=== PATIENT | female | born 1955 | race Caucasian/White ===

== ENCOUNTER → 2023-04-13 | Outpatient (CLI) | payer MEDICARE, OTHER ==
[~2023-04-13] MED LIST: ACIDOPHILUS1 EAC3; ASPI81CH; CONEST.9; Cranberry400 MG; DEBROX; DESV50; FLAX; HYDHCL25 MT; HYDROCORTISONE30 GM; IBUP200; Milk Thistle175 M1; PSYSENPA; TRAZ50; URITRAX47 GM; ZINC15; Zovirax Cream 5%2 GM
[2023-04-16 15:08] LABS: CHLAMYDIA TRACHOMATIS, NAA Negative (Negative); HPV 16 Negative (Negative); HPV 18 Negative (Negative); HPV OTHER HR TYPES Negative (Negative)
== END | disposition home or self-care (01) ==
LOC: LAB SHORT 16:51 → LAB 16:51
PROVIDERS: Nurse Practitioner Family
DX: Z01.419 Encounter for gynecological examination (general) (routine) without abnormal findings (principal)
CPT/HCPCS: 87491; 87591; 87624; G0145

== ENCOUNTER 2023-04-24 07:14 | Day surgery (SDC) | payer MEDICARE, OTHER ==
[~2023-04-24] VITALS: Ht 157.5 cm; Wt 79.2 kg
[2023-04-24] MEDS ORDERED: Zovirax Cream 5%2 GM (08:15)
[2023-04-24] MEDS ORDERED: DESV50 (08:15)
[2023-04-24] MEDS ORDERED: CONEST.9 (08:16)
[2023-04-24] MEDS ORDERED: HYDHCL25 MT (08:16)
[2023-04-24] MEDS ORDERED: TRAZ50 (08:17)
[2023-04-24] MEDS ORDERED: HYDROCORTISONE30 GM (08:18)
[2023-04-24] MEDS ORDERED: PSYSENPA (08:19)
[2023-04-24] MEDS ORDERED: DEBROX (08:19)
[2023-04-24] MEDS ORDERED: Cranberry400 MG (08:20)
[2023-04-24] MEDS ORDERED: ASPI81CH (08:20)
[2023-04-24] MEDS ORDERED: ACIDOPHILUS1 EAC3 (08:20)
[2023-04-24] MEDS ORDERED: FLAX (08:20)
[2023-04-24] MEDS ORDERED: ZINC15 (08:20)
[2023-04-24] MEDS ORDERED: IBUP200 (08:20)
[2023-04-24] MEDS ORDERED: Milk Thistle175 M1 (08:21)
[2023-04-24] MEDS ORDERED: URITRAX47 GM (08:21)
[2023-04-24 13:09] VITALS: BP 139/105
== END 2023-04-24 10:30 | disposition home or self-care (01) ==
LOC: ORSCSDS 07:14
PROVIDERS: Internal Medicine Gastroenterology
PROC: 0DBM8ZX Excision of Descending Colon, Via Natural or Artificial Opening Endoscopic, Diagnostic (ICD-10-PCS; principal; 2023-04-24 09:30)
PROC: 0DBN8ZX Excision of Sigmoid Colon, Via Natural or Artificial Opening Endoscopic, Diagnostic (ICD-10-PCS; principal; 2023-04-24 09:30)
DX: R10.32 Left lower quadrant pain (principal); K59.00 Constipation, unspecified; K58.2 Mixed irritable bowel syndrome; D12.4 Benign neoplasm of descending colon; D12.5 Benign neoplasm of sigmoid colon; Z80.0 Family history of malignant neoplasm of digestive organs; I86.8 Varicose veins of other specified sites; F90.9 Attention-deficit hyperactivity disorder, unspecified type; F41.9 Anxiety disorder, unspecified; Z79.899 Other long term (current) drug therapy
CPT/HCPCS: 88305; J2704; J7120